=== PATIENT | male | born 1960 | race Caucasian/White ===

== ENCOUNTER 2022-11-29 08:58 | Outpatient (CLI) | payer MEDICARE ==
[~2022-11-29 08:58] MED LIST: Magnevist 469MG/ML 20 ML VIAL ONE
== END 2022-11-29 08:59 | disposition home or self-care (01) ==
LOC: CSHMRI 08:58
PROVIDERS: ATTEND Internal Medicine
DX: G93.0 Cerebral cysts (principal); M54.50 Low back pain, unspecified; M54.16 Radiculopathy, lumbar region; H05.20 Unspecified exophthalmos; H47.099 Other disorders of optic nerve, not elsewhere classified, unspecified eye; M48.07 Spinal stenosis, lumbosacral region; M48.061 Spinal stenosis, lumbar region without neurogenic claudication; M79.9 Soft tissue disorder, unspecified
CPT/HCPCS: 70553; 72148

== ENCOUNTER 2022-12-25 10:53 | Emergency (ER) | payer MEDICARE ==
[2022-12-25 11:55] LABS: INR-International Normal Ratio 1.1; PTT 25.4 sec (22.0-33.0); Prothrombin Time 12.2 sec (9.5-12.1)
[2022-12-25 11:57] LABS: #Monocytes 1.7 10x3/uL (0.0-1.1); #Neutrophils 9.7 10x3/uL (1.5-8.4); %Basophils 0.2 % (0.0-2.0); %Eosinophils 0.2 % (0.0-6.0); %Lymphocytes 8.9 % (18.0-47.0); %Monocytes 13.2 % (0.0-10.0); %Neutrophils 76.6 % (40.0-75.0); Hematocrit 49.5 % (38.8-50.0); Mean Corpuscular HGB CONC 34.3 g/dL (32.0-36.0); Mean Corpuscular Hemoglobin 32.1 pg (27.0-33.0); Mean Corpuscular Volume 93.4 fl (81.2-95.1); Mean Platelet Volume 10.9 fl (7.4-10.4); Platelet Count 226 10x3/uL (150-450); RBC Distribution Width 14.3 % (11.5-14.5); White Blood Cell (WBC) Count 12.7 10x3/uL (3.5-10.5)
[2022-12-25 12:00] LABS: ALT (SGPT) 74 U/L (8-55); AST (SGOT) 26 U/L (5-34); Albumin 3.5 g/dL (3.4-4.8); Alkaline Phosphatase 45 U/L (40-110); Anion Gap 11 mmol/L (10-20); BUN (Urea Nitrogen) 20 mg/dL (8.4-25.7); Bilirubin, Total 0.9 mg/dL (0.2-1.2); Calc. Creatinine Clearance 0 mL/min (70-130); Calcium 8.8 mg/dL (7.8-10.44); Carbon Dioxide 28 mmol/L (23-31); Chloride 101 mmol/L (98-107); Estimated GFR 99; Globulin 2.6 g/dL (2.4-3.5); Glucose 115 mg/dL (80-115); Potassium 4.3 mmol/L (3.5-5.1); Protein, Total 6.1 g/dL (5.8-8.1); Sodium 136 mmol/L (136-145)
[2022-12-25 12:03] LABS: Troponin I Less than 0.010 ng/mL (< 0.028)
[2022-12-25] MEDS ORDERED: Morphine 4 MG/ML VIAL ONE (14:47)
[2022-12-25] MEDS ORDERED: Dexamethasone 10 MG/ML VIAL ONE (15:40)
[2022-12-25] MEDS ORDERED: Apixaban 5 MG TAB ONE (18:07)
== END 2022-12-25 19:03 | disposition short-term general hospital (02) ==
LOC: CSHERS 10:53
DX: G95.20 Unspecified cord compression (principal); I26.92 Saddle embolus of pulmonary artery without acute cor pulmonale; Z86.711 Personal history of pulmonary embolism; E11.9 Type 2 diabetes mellitus without complications; E03.9 Hypothyroidism, unspecified; E78.00 Pure hypercholesterolemia, unspecified; J44.9 Chronic obstructive pulmonary disease, unspecified; F17.290 Nicotine dependence, other tobacco product, uncomplicated
CPT/HCPCS: 72141; 72157; 72158; 80053; 83605; 84484; 85025; 85610; 85730; 86140; 87040; 93005; 96374; 96375; J1100; J2270